=== PATIENT | male | born 1960 | race African-American/Black ===

== ENCOUNTER 2025-06-29 12:00 | Emergency (ER) | payer OTHER ==
[~2025-06-29] VITALS: Ht 170.2 cm; Wt 84.1 kg
[2025-06-29 12:17] VITALS: TEMP 97.9
[2025-06-29] MEDS ORDERED: EMPA25TA3 PO (12:24)
[2025-06-29] MEDS ORDERED: MULT-412 PO (12:24)
[2025-06-29] MEDS ORDERED: LURA40TA2 PO (12:24)
[2025-06-29] MEDS ORDERED: FOLI-130 PO (12:24)
[2025-06-29] MEDS ORDERED: METF-1211 PO (12:24)
[2025-06-29] MEDS ORDERED: CARV12 PO (12:24)
[2025-06-29] MEDS ORDERED: OMEG100033 PO (12:24)
[2025-06-29] MEDS ORDERED: NALT50TA33 PO (12:24)
[2025-06-29] MEDS ORDERED: THIA100T80 PO (12:24)
[2025-06-29 12:41] LABS: GLUCOMETER DEV NAME(LOC) ER.7; GLUCOSE,POINT OF CARE 247 MG/DL (70-110)
[2025-06-29] MEDS: KETOROLAC TROMETHAMINE 60 MG/2 ML VIAL IM ONE (12:43)
[2025-06-29 14:12] VITALS: BP 150/82; PULSE 82; RESP 18; O2SAT 98
== END 2025-06-29 14:17 | disposition short-term general hospital (02) ==
LOC: EMS 12:00
DX: F03.90 Unspecified dementia, unspecified severity, without behavioral disturbance, psychotic disturbance, mood disturbance, and anxiety (principal); F25.9 Schizoaffective disorder, unspecified; E11.9 Type 2 diabetes mellitus without complications; Z79.899 Other long term (current) drug therapy
CPT/HCPCS: 99285; 82962; 72100; 96372; J1885